=== PATIENT | female | born 1980 | race Caucasian/White ===

== ENCOUNTER → 2017-11-01 | Outpatient (CLI) | payer OTHER ==
[~2017-11-01] MED LIST: CIPROFLOXACIN500 M1 PO; MULTI-VITAMIN1 EAC5 PO; PERCOCET 5-3251 EACH PO; YASMIN 28 TABL1 EACH PO; [UNRECOGNIZED DRUG - REMARK] PO
== END ==
LOC: RAD 10:14
DX: S63.501A Unspecified sprain of right wrist, initial encounter (principal); W19.XXXA Unspecified fall, initial encounter; Y93.89 Activity, other specified; Y92.89 Other specified places as the place of occurrence of the external cause; Y99.8 Other external cause status